=== PATIENT | male | born 1970 | race Caucasian/White ===

== ENCOUNTER 2019-08-29 02:51 | Emergency (ER) | payer OTHER ==
[2019-08-29] MEDS ORDERED: HYDROmorphone 1 MG/ML 1 ML SYRINGE IVP STA (03:04)
[2019-08-29 03:45] VITALS: TEMP 98.7
--- NOTE | 2019-08-29 03:59 | US ---
EXAMINATION TYPE: US scrotum with doppler. Grayscale and color Doppler Duplex imaging performed of t roney scrotum. DATE OF EXAM: 08/29/2019 COMPARISON: NONE CLINICAL HISTORY: R/O torsion. Left testicular pain x 1 day. EXAM MEASUREMENTS: TESTICLES: Right Testicle: 5.6 x 3.7 x 4.1 cm. Left Testicle: 5.3 x 3.7 x 3.5 cm. EPIDIDYMIS HEAD: Right Epididymis: 1.5 x 1.7 x 0.7 cm. Left Epididymis: 1.6 x 1.4 x 0.9 cm. Isoechoic area seen adjacent to right testicle: 0.7 x 0.5 x 0.6 cm. Isoechoic area seen adjacent to the left testicle: 0.5 x 0.5 x 0.5 cm. Small Hyperechoic area with shadowing seen within left testicle: 0.1 x 0.1 x 0.1 cm. Doppler performed to assess for testicular vascularity; bilateral color flow and waveforms are seen. Presence of hydroceles: Right: 8.3 x 4.5 x 4.0 cm. Left: 7.9 x 5.6 x 2.7 cm. Presence of varicoceles: Vessels measure up to 1.6 cm on right. *Prominent vessels measure 0.33 cm o n left. Testicles measure enlarged bilaterally. IMPRESSION: There are large bilateral hydroceles. No evidence of testicular torsion or mass.
--- NOTE | 2019-08-29 05:03 | ED ---
Male Urogenital HPI - General Chief complaint: Urogenital Stated complaint: Groin pain Time Seen by Provider: 08/29/19 02:57 Source: patient, EMS Mode of arrival: EMS Limitations: no limitations - History of Present Illness Initial comments: This patient is a 49-year-old man who presents here as transfer from outside hospital. The patient had gone there for evaluation of left groin pain which had come on over the course of the evening. 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 The patient has not noted any testicular mass or swelling. He has not noted change in urination. No change in bowel movements. No abdominal pain or vomiting. No symptoms to the leg. No fever or chills. Patient had workup at the other hospital but there was not AVAILABLE TO RULE OUT ANY TESTICULAR TORSION. MD Complaint: testicle pain -: hour(s) Location: left testicle Radiation: none Severity: severe Quality: aching, sharp Consistency: constant Improves with: none Worsens with: movement new medication Reports: denies other symptoms - Related Data Previous Rx's Medication Instructions Recorded Acetaminophen-Codeine 300-30mg 1 tab PO Q4H PRN #15 tablet 08/29/19 [Tylenol w/codeine #3] Allergies Allergy/AdvReac Type Severity Reaction Status Date / Time No Known Allergies Allergy Verified 08/29/19 02:57 Review of Systems ROS Statement: Those systems with pertinent positive or pertinent negative responses have been documented in the HPI. ROS Other: All systems not noted in ROS Statement are negative. Constitutional: Denies: fever, chills, weakness Respiratory: Denies: cough, dyspnea Cardiovascular: Denies: chest pain, palpitations, edema Gastrointestinal: Reports: as per HPI. Denies: abdominal pain, nausea, vomiting, diarrhea, constipation Genitourinary: Reports: testicular pain. Denies: dysuria, frequency, hematuria, discharge, testicular mass Musculoskeletal: Denies: back pain Skin: Denies: rash Neurological: Denies: headache, weakness, numbness Past Medical History Past Medical History: Hypertension Additional Past Medical History / Comment(s): edema History of Any Multi-Drug Resistant Organisms: None Reported Past Surgical History: Tonsillectomy Additional Past Surgical History / Comment(s): cardioversion Past Psychological History: No Psychological Hx Reported Smoking Status: Never smoker Past Alcohol Use History: Occasional Past Drug Use History: None Reported General Exam Limitations: no limitations General appearance: alert, in no apparent distress Head exam: Present: atraumatic, normocephalic Eye exam: Present: normal appearance. Absent: scleral icterus, conjunctival injection Respiratory exam: Present: normal lung sounds bilaterally. Absent: respiratory distress, wheezes, rales, rhonchi, stridor Cardiovascular Exam: Present: regular rate, normal rhythm, normal heart sounds. Absent: systolic murmur, diastolic murmur, rubs, gallop GI/Abdominal exam: Present: soft. Absent: distended, tenderness, guarding, rebound, rigid, mass exam: Present: normal inspection, testicular tenderness, vertical testicular lie. Absent: urethral discharge, scrotal swelling Extremities exam: Present: normal inspection, normal capillary refill. Absent: pedal edema, calf tenderness Back exam: Present: normal inspection. Absent: CVA tenderness (R), CVA tenderness (L) Neurological exam: Present: alert Skin exam: Present: warm, dry, intact, normal color. Absent: rash Course Vital Signs 08/29/19 08/29/19 02:52 05:17 Temperature 98.7 F Pulse Rate 91 80 Respiratory 16 18 Rate Blood Pressure 172/112 161/100 O2 Sat by Pulse 97 96 Oximetry Medical Decision Making - Medical Decision Making Patient's 49-year-old man presenting with left groin and testicle pain. He has had relief of symptoms following analgesia here. The ultrasound is not revealing evidence of torsion. We did discuss appropriate follow-up as well as return parameters. Disposition Clinical Impression: Groin pain Disposition: HOME SELF-CARE Condition: Good Instructions (If sedation given, give patient instructions): Groin Pain (ED) Prescriptions: Acetaminophen-Codeine 300-30mg [Tylenol w/codeine #3] 1 tab PO Q4H PRN #15 tablet PRN Reason: Pain Is patient prescribed a controlled substance at d/c from ED?: No Referrals: Nonstaff,Physician [Primary Care Provider] - 1-2 days
[2019-08-29 06:04] VITALS: BP 161/100; PULSE 80; RESP 18
== END 2019-08-29 05:17 | disposition home or self-care (01) ==
LOC: EC 02:51
DX: R10.32 Left lower quadrant pain (principal); N50.812 Left testicular pain
CPT/HCPCS: 96374 ×2; 99284 ×2; 93975; 76870; J1170